=== PATIENT | male | born 1965 | race Caucasian/White ===

== ENCOUNTER 2017-05-01 21:32 | Inpatient (IN) | payer SELFPAY ==
[~2017-05-01] VITALS: Ht 175.2 cm; Wt 116.6 kg
--- NOTE | ~2017-05-01 | WRIGHTHP ---
[place], [place] PATIENT HISTORY AND PHYSICAL EXAM NAME: VITALY NG UNIT #: [id number] ROOM: 529 DOCTOR: JOSE L ZULETA MD BIRTHDATE: [birth year] DOS: 05/01/2017 HISTORY OF PRESENT ILLNESS: This 51-year-old patient is very well known to me. He called the office about 2 weeks ago and stated that he had some shingles. Valtrex was called in. The patient states that he finished taking the medications and the lesions were drying up, then 2 days ago he noticed some drainage coming from his back and he felt like it was splitting open. Because of continued drainage, he decided to come into the Emergency Room yesterday. He denies having any chest pains, palpitations, does not have any fever or chills. He is unable to lie down flat because of the continued drainage. PAST MEDICAL HISTORY: Significant for: 1. Type 2 diabetes mellitus, poorly controlled, insulin-dependent. 2. Benign hypertension. 3. Recent herpes zoster. MEDICATIONS: Glyburide, metformin, Actos, Valtrex which he has finished taking. SOCIAL HISTORY: Nonsmoker, does not use any alcohol. PHYSICAL EXAMINATION: GENERAL: He is awake and alert and oriented. VITAL SIGNS: Graphic trend shows that he is afebrile, temperature 98.2, pulse of 106, respirations 20, blood pressure 191/87. LUNGS: Diminished breath sounds, clear. HEART: Regular. ABDOMEN: Obese, soft, nontender. EXTREMITIES: Without any edema. He has a large area of redness in the mid back with redness, drainage of purulent material and induration which is about 2 cm beyond the actual redness. ASSESSMENT AND PLAN: 1. Abscess of the back with continued drainage, will require an incision and drainage. A Surgical consultation will be obtained. The patient is on vancomycin and Zosyn, which are continued. 2. Type 2 diabetes mellitus, non-insulin dependent. Continue his home medications. Blood sugars to be checked twice daily. Coverage has been started. 3. Benign hypertension, poorly controlled. Controlled with addition of new antihypertensive. [place], [place] PATIENT HISTORY AND PHYSICAL EXAM NAME: VITALY NG UNIT #: [id number] ROOM: 529 DOCTOR: JOSE L ZULETA MD BIRTHDATE: [birth year] JOSE L ZULETA MD CM:HISPHYS:PATIENT HISTORY AND PHYSICAL EXAMINATION 2 6 JOSE L ZULETA MD 05/02/1757 interface
--- NOTE | ~2017-05-01 | DS ---
[place], [place] DISCHARGE SUMMARY [id number] UNIT #: [id number] ROOM: 529 DOCTOR: NAVA SOLO MD BIRTHDATE: [birth year] DOS: 05/03/2017 DISCHARGE DIAGNOSES: 1. Incision and drainage of abscess in the left lower back by Dr. Pena today. 2. Type 2 diabetes mellitus, uncontrolled, requires insulin. 3. Benign essential hypertension. 4. Recent herpes zoster infection. HOSPITAL COURSE: 1. The patient was admitted by Dr. Terra Grace with drainage from his left lower back. The patient was admitted and started on IV antibiotics for an abscess. The patient was finally taken for incision and drainage by the surgeon, Dr. Goyo Pena today and after drainage, he cleared the patient for discharge to home on oral Augmentin. 2. Type 2 diabetes mellitus, uncontrolled. The patient's blood sugars were monitored and treated accordingly. 3. Benign essential hypertension, poorly controlled. Blood pressures were monitored and treated. LABORATORY DATA: Wound cultures grew heavy gram-positive cocci. White cell count was improving at 12,700, was 13,200 at admission. Blood cultures x 2 were negative. DISCHARGE MANAGEMENT: Augmentin as prescribed by Dr. Pena, metoprolol 25 mg b.i.d., Vasotec 5 mg daily, Actos 15 mg daily, aspirin 81 mg a day, metformin 1000 mg b.i.d., glipizide 10 mg b.i.d., Xanax p.r.n. FOLLOWUP: With Dr. Pena as he recommended and follow up with Dr. Terra Grace in less than a week of discharge. NAVA SOLO MD CM:DISCHARG 03 34 NAVA SOLO MD 05/03/171935 interface
[2017-05-01 21:37] VITALS: BP 180/94
[2017-05-01] MEDS ORDERED: METFORMIN HCL500 MG PO (21:52)
[2017-05-01] MEDS ORDERED: GLYBURIDE5 MG PO (21:52)
[2017-05-01] MEDS ORDERED: VALACYCLOVIR500 M1 PO (21:53)
[2017-05-01] MEDS ORDERED: PIOGLITAZONE HC15 MG PO (21:53)
[2017-05-01 22:13] LABS: BASO % 0.3 % (0.0-1.0); EOS % 0.2 % (1.0-4.0); HEMATOCRIT 41.6 % (42.0-52.0); HEMOGLOBIN 14.7 g/dl (14.0-18.0); LYMPH # 1.3 10*3/uL (1.3-4.4); LYMPH % 9.9 % (27.0-41.0); MEAN CELL VOLUME 85.6 fl (80.0-94.0); MEAN CORPUSCULAR HGB 30.2 pg (27.0-31.0); MEAN CORPUSCULAR HGB CONC 35.3 g/dl (33.0-37.0); MEAN PLATELET VOLUME 10.1 fl (9.6-12.3); MONO # 0.8 10*3/uL (0.1-1.0); MONO % 6.3 % (3.0-9.0); NEUT # 10.9 10*3/uL (2.3-7.9); NEUT % 82.9 % (47.0-73.0); PLATELET COUNT AUTOMATED 247 10*3/uL (130-400); RED BLOOD COUNT 4.86 10*6/uL (4.50-5.90); RED CELL DISTRI WIDTH 12.4 % (0-14.5); WHITE BLOOD COUNT 13.2 10*3/uL (4.8-10.8)
--- NOTE | 2017-05-01 22:23 | NUR ---
ABSCESS ON PT RIGHT LOWER BACK CLEANED AND DRESSED WITH GAUZE AND ABD PAD.
[2017-05-01 22:27] LABS: ALBUMIN 3.8 gm/dl (3.1-4.5); ALKALINE PHOSPHATASE 105 U/L (45-117); BUN 13 mg/dl (7-24); CHLORIDE 100 mmol/L (98-107); CREATININE 0.82 mg/dL (0.70-1.30); POTASSIUM 3.9 mmol/L (3.5-5.1); SGOT/AST 10 IU/L (3-35); SGPT/ALT 22 U/L (12-78); SODIUM 134 mmol/L (136-145); TOTAL PROTEIN 8.2 gm/dL (6.4-8.2)
[2017-05-01 22:52] VITALS: BP 150/100
[2017-05-01 23:57] VITALS: BP 191/87
--- NOTE | 2017-05-01 23:57 | NUR ---
Time: 2356 A 51 year old M admitted to under services of JOSE L GARCIA MD. Pt. arrived via bed from ER. Chief complaint: WOUND X 1 WK, WORSENING. BERYL PRASAD
[2017-05-02] VITALS: BP 191/87
[2017-05-02] MEDS ORDERED: IBU-200200 MG PO (00:14)
[2017-05-02] MEDS ORDERED: ASPIR LOW81 MG PO (00:14)
[2017-05-02] MEDS ORDERED: ENALAPRIL5 MG PO (00:15)
--- NOTE | 2017-05-02 01:10 | NUR ---
DR ZULETA CONTACTED, ADMISSION ORDERS RECEIVED
--- NOTE | 2017-05-02 06:12 | NUR ---
MEDICATED WITH PRN NORCO ORDERED FOR C/O BACK PAIN RATED A 6.
--- NOTE | 2017-05-02 07:00 | NUR ---
DR ZULETA HERE TO SEE PATIENT AND DISCUSS PLAN OF CARE
[2017-05-02 07:50] LABS: BASO % 0.2 % (0.0-1.0); EOS # 0.1 10*3/uL (0.0-0.4); EOS % 0.5 % (1.0-4.0); HEMATOCRIT 40.1 % (42.0-52.0); HEMOGLOBIN 14.1 g/dl (14.0-18.0); LYMPH # 1.4 10*3/uL (1.3-4.4); LYMPH % 11.4 % (27.0-41.0); MEAN CELL VOLUME 87.2 fl (80.0-94.0); MEAN CORPUSCULAR HGB 30.7 pg (27.0-31.0); MEAN CORPUSCULAR HGB CONC 35.2 g/dl (33.0-37.0); MEAN PLATELET VOLUME 9.9 fl (9.6-12.3); MONO # 0.9 10*3/uL (0.1-1.0); MONO % 7.2 % (3.0-9.0); NEUT # 10.2 10*3/uL (2.3-7.9); NEUT % 80.3 % (47.0-73.0); PLATELET COUNT AUTOMATED 242 10*3/uL (130-400); RED CELL DISTRI WIDTH 12.5 % (0-14.5); WHITE BLOOD COUNT 12.7 10*3/uL (4.8-10.8)
[2017-05-02 08:00] VITALS: BP 157/100
--- NOTE | 2017-05-02 08:00 | NUR ---
SITTING ON SIDE OF BED AWAKE ALERT AND ORIENTED X3, VERY PLEASANT. NO S/S OF DISTRESS. WILL CONT TO MONITOR. CALL LIGHT IN REACH. SEE ASSESS
--- NOTE | 2017-05-02 11:13 | NUR ---
PHYSICIAN WAS NOTIFIED OF DR. BARRIOS CONSULT. RESPONSE OF NOTIFICATION WAS ON FLOOR AND NOTIFIED HIM. STEVE NG
--- NOTE | 2017-05-02 14:52 | NUR ---
NORCO GIVEN FOR C/O PAIN TO BACK ABCESS OF 12/17. WILL CONT TO MONITOR. CALL LIGHT IN REACH.
[2017-05-02 16:00] VITALS: BP 137/76
--- NOTE | 2017-05-02 20:00 | NUR ---
PT RESTING IN BED. NO ACUTE DISTRESS NOTED AT THIS TIME. PT DENIES PAIN. WILL CONTINUE TO MONITOR.
--- NOTE | 2017-05-02 22:49 | NUR ---
PT RESTING IN BED NO ACUTE DISTRESS NOTED AT THIS TIME. CALL LIGHT IN REACH.
[2017-05-03] VITALS (8 sets, daily range): BP systolic 112–159; BP diastolic 55–84
--- NOTE | 2017-05-03 09:53 | NUR ---
IN TO SEE PT.
--- NOTE | 2017-05-03 15:15 | NUR ---
PT RETURNED TO FLOOR FROM SURGERY.
--- NOTE | 2017-05-03 17:07 | NUR ---
PT REQUESTED PAIN MEDICATION FOR HEADACHE AND ABCSESS PAIN. PAIN RATED AT 5 OUT OF 10. NORCO GIVEN. WILL CONTINUE TO MONITOR.
[2017-05-03] MEDS ORDERED: AUGMENTIN 875875 MG PO (18:37)
--- NOTE | 2017-05-03 19:35 | NUR ---
Discharge instructions reviewed with patient/family. Patient receptive and verbalizes understanding. Follow-up care arranged. Written instructions given to patient/family. BERYL MATTA
== END 2017-05-03 19:35 | disposition home or self-care (01) | DRG 872 ==
LOC: ED 21:32 → EDHOLD 22:58 → 5E 22:58
PROVIDERS: Physician Assistant; ADMIT Internal Medicine
PROC: 0W9L0ZZ Drainage of Lower Back, Open Approach (ICD-10-PCS; principal; 2017-05-03)
DX: A41.9 Sepsis, unspecified organism (principal); E11.65 Type 2 diabetes mellitus with hyperglycemia; B02.8 Zoster with other complications; L02.212 Cutaneous abscess of back [any part, except buttock and flank]; I10 Essential (primary) hypertension; Z91.040 Latex allergy status; Z79.4 Long term (current) use of insulin; L30.8 Other specified dermatitis; Z79.82 Long term (current) use of aspirin; Z79.84 Long term (current) use of oral hypoglycemic drugs; Z79.899 Other long term (current) drug therapy; Z23 Encounter for immunization

== ENCOUNTER → 2017-05-07 | Outpatient (CLI) | payer OTHER ==
[~2017-05-07] MED LIST: ASPIR LOW81 MG PO; AUGMENTIN 875875 MG PO; ENALAPRIL5 MG PO; GLYBURIDE5 MG PO; IBU-200200 MG PO; METFORMIN HCL500 MG PO; PIOGLITAZONE HC15 MG PO; VALACYCLOVIR500 M1 PO
== END | disposition home or self-care (01) ==
LOC: WOUNDCARE 01:49
DX: L02.212 Cutaneous abscess of back [any part, except buttock and flank] (principal)

== ENCOUNTER → 2017-05-14 | Outpatient (CLI) | payer OTHER | END | disposition home or self-care (01) | LOC: WOUNDCARE 04:03 | DX: S21.209D Unspecified open wound of unspecified back wall of thorax without penetration into thoracic cavity, subsequent encounter (principal); X58.XXXD Exposure to other specified factors, subsequent encounter ==

== ENCOUNTER → 2017-05-21 | Outpatient (CLI) | payer OTHER | END | disposition home or self-care (01) | LOC: WOUNDCARE 00:56 | DX: S21.209D Unspecified open wound of unspecified back wall of thorax without penetration into thoracic cavity, subsequent encounter (principal); X58.XXXD Exposure to other specified factors, subsequent encounter ==

== ENCOUNTER → 2017-05-28 | Outpatient (CLI) | payer OTHER | END | disposition home or self-care (01) | LOC: WOUNDCARE 15:55 | DX: S21.209D Unspecified open wound of unspecified back wall of thorax without penetration into thoracic cavity, subsequent encounter (principal); X58.XXXD Exposure to other specified factors, subsequent encounter ==

== ENCOUNTER → 2017-06-04 | Outpatient (CLI) | payer OTHER | END | disposition home or self-care (01) | LOC: WOUNDCARE 11:42 | DX: S21.209D Unspecified open wound of unspecified back wall of thorax without penetration into thoracic cavity, subsequent encounter (principal); X58.XXXD Exposure to other specified factors, subsequent encounter ==

== ENCOUNTER → 2017-06-18 | Outpatient (CLI) | payer OTHER | END | disposition home or self-care (01) | LOC: WOUNDCARE 01:09 | DX: S21.209A Unspecified open wound of unspecified back wall of thorax without penetration into thoracic cavity, initial encounter (principal); X58.XXXA Exposure to other specified factors, initial encounter; Y93.89 Activity, other specified; Y92.89 Other specified places as the place of occurrence of the external cause; Y99.8 Other external cause status ==